=== PATIENT | female | born 1985 | race African-American/Black ===

== ENCOUNTER 2018-07-06 08:42 | Emergency (ER) | payer SELFPAY ==
[2018-07-06] MEDS ORDERED: AMOXICILLIN TRIHYDRATE 500 MG CAPSULE PO ONE (09:11)
[2018-07-06] MEDS ORDERED: IBUPROFEN 800 MG TABLET PO ONE (09:11)
--- NOTE | 2018-07-06 09:12 | ER Document Report ---
HPI - HPI Time Seen by Provider: 07/06/18 09:00 Onset: This morning Onset/Duration: Gradual Quality of pain: Achy Pain Level: 5 Context: Patient presents complaining of left ear pain that started today. Patient denies any fever or drainage from the ear. Associated Symptoms: Earache. denies: Fever, Rhinnorhea, Sore throat Exacerbated by: Denies Relieved by: Denies Similar symptoms previously: Yes Recently seen / treated by doctor: No - ROS ROS below otherwise negative: Yes Systems Reviewed and Negative: Yes All other systems reviewed and negative - CONSTITUTIONAL Constitutional: DENIES: Fever - EENT EENT: REPORTS: Ear Pain - GASTROINTESTINAL Gastrointestinal: DENIES: Nausea, Patient vomiting - REPRODUCTIVE Reproductive: DENIES: : - DERM Skin Color: Normal Skin Problems: None Past Medical History - General Information source: Patient - Social History Smoking Status: Current Every Day Smoker Smoking Education Provided: Yes Frequency of alcohol use: Occasional Drug Abuse: None Occupation: None Family History: Reviewed & Not Pertinent - Medical History Medical History: Negative Surgical Hx: Negative - Immunizations Hx Diphtheria, Pertussis, Tetanus Vaccination: Yes Vertical Provider Document - CONSTITUTIONAL Agree With Documented VS: Yes Exam Limitations: No Limitations General Appearance: WD/WN, No Apparent Distress - INFECTION CONTROL TRAVEL OUTSIDE OF THE [place] IN LAST 30 DAYS: No - HEENT HEENT: Atraumatic, Normocephalic, Tympanic Membrane Red, Tympanic Membrane Bulging - left. negative: Pharyngeal Exudate, Pharyngeal Tenderness, Pharyngeal Erythema Notes: No fluid or drainage from the left ear, no mastoid tenderness or swelling - NECK Neck: Normal Inspection, Supple. negative: Lymphadenopathy-Left, Lymphadenopathy-Right - RESPIRATORY Respiratory: Breath Sounds Normal, No Respiratory Distress - CARDIOVASCULAR Cardiovascular: Regular Rate, Regular Rhythm, No Murmur - BACK Back: Normal Inspection - MUSCULOSKELETAL/EXTREMETIES Musculoskeletal/Extremeties: MAEW - NEURO Level of Consciousness: Awake, Alert, Appropriate Motor/Sensory: No Motor Deficit - DERM Integumentary: Warm, Dry, No Rash Course - Re-evaluation Re-evalutation: 07/06/18 09:20 Patient complains of nausea and vomited one time. Additional medications order ed. 07/06/18 10:22 She reports that nausea is improved at this time and feels that she can manage her symptoms at home. - Vital Signs Vital signs: Temp Pulse Resp BP Pulse Ox 98.4 F 85 14 139/94 H 99 07/06/18 08:46 07/06/18 08:46 07/06/18 08:46 07/06/18 08:46 07/06/18 08:46 Discharge - Discharge Clinical Impression: Nausea Left otitis media Qualifiers: Otitis media type: unspecified Qualified Code(s): H66.92 - Otitis media, unspecified, left ear Condition: Stable Disposition: HOME, SELF-CARE Instructions: Amoxicillin ([facility]), Nausea or Vomiting, Nonspecific ([facility]), Otitis Media ([facility]) Additional Instructions: Return immediately for any new or worsening symptoms Followup with your primary care provider, call tomorrow to make a followup appointment Prescriptions: Amoxicillin 500 mg PO TID #30 tablet Naproxen [Naprosyn 250 Nmg Tablet] 1 tab PO BID #14 tablet Ondansetron HCl [Zofran 4 mg Tablet] 1 - 2 tab PO Q6 PRN #8 tablet PRN Reason: Referrals: [facility] [Provider Group] - Follow up as needed
[2018-07-06] MEDS ORDERED: ONDANSETRON 4 MG TAB.RAPDIS PO ONE (09:20)
[2018-07-06] MEDS ORDERED: HYDROCODONE/ACETAMINOPHEN 5-325 MG TABLET PO ONE (10:22)
[2018-07-06 10:39] VITALS: BP 146/94
== END 2018-07-06 10:41 | disposition home or self-care (01) ==
LOC: ER 08:42
DX: H66.92 Otitis media, unspecified, left ear (principal); H92.02 Otalgia, left ear; R11.2 Nausea with vomiting, unspecified; F17.200 Nicotine dependence, unspecified, uncomplicated
CPT/HCPCS: 99282; S0119

== ENCOUNTER 2018-11-05 07:53 | Emergency (ER) | payer SELFPAY ==
[2018-11-05 07:58] VITALS: BP 149/93
[2018-11-05] MEDS ORDERED: IBUPROFEN 600 MG TABLET PO ONE (09:36)
[2018-11-05] MEDS ORDERED: DIAZEPAM 5 MG TABLET PO ONE (09:36)
--- NOTE | 2018-11-05 09:39 | ER Document Report ---
HPI - HPI Time Seen by Provider: 11/05/18 09:06 Pain Level: 5 Notes: Patient is a 33-year-old otherwise healthy female presented to the emergency department with complaint of upper back pain and neck pain. Patient reports pain over the left scapular area. States this is been ongoing for approximately 5 days. Patient reports she thinks she pulled a muscle in her neck. Patient denies any recent illness or fever. - CONSTITUTIONAL Constitutional: DENIES: Fever, Chills - EENT EENT: DENIES: Sore Throat, Ear Pain, Eye problems - NEURO Neurology: REPORTS: Headache. DENIES: Weakness, Vision blurred, Dizzinesss / Vertigo - CARDIOVASCULAR Cardiovascular: DENIES: Chest pain - RESPIRATORY Respiratory: REPORTS: Coughing. DENIES: Trouble Breathing - GASTROINTESTINAL Gastrointestinal: DENIES: Abdominal Pain, Black / Bloody Stools - URINARY Urinary: DENIES: Dysuria, Urgency, Frequency - REPRODUCTIVE Reproductive: DENIES: : - MUSCULOSKELETAL Musculoskeletal: DENIES: Extremity pain Past Medical History - General Information source: Patient - Social History Smoking Status: Current Every Day Smoker Chew tobacco use (# tins/day): No Frequency of alcohol use: Social Drug Abuse: Marijuana Family History: Reviewed & Not Pertinent Patient has suicidal ideation: No Patient has homicidal ideation: No - Medical History Medical History: Negative Renal/ Medical History: Denies: Hx Peritoneal Dialysis Surgical Hx: Negative - Immunizations Hx Diphtheria, Pertussis, Tetanus Vaccination: Yes Vertical Provider Document - CONSTITUTIONAL Notes: PHYSICAL EXAMINATION: GENERAL: Well-appearing, well-nourished and in no acute distress. HEAD: Atraumatic, normocephalic. EYES: Pupils equal round extraocular movements intact, conjunctiva are normal. ENT: Nares patent NECK: Normal range of motion LUNGS: No respiratory distress Musculoskeletal: Limited range of motion to cervical area when turning head towards the right. No vertebral tenderness, step-off or deformity. NEUROLOGICAL: Normal speech, normal gait. PSYCH: Normal mood, normal affect. SKIN: Warm, Dry, normal turgor, no rashes or lesions noted. - INFECTION CONTROL TRAVEL OUTSIDE OF THE [place] IN LAST 30 DAYS: No Course - Re-evaluation Re-evalutation: 11/05/18 09:37 Examination is consistent with torticollis. Patient will be started on a short course of Valium and instructed to take [id number] ibuprofen. ED return precautions were discussed and patient verbalized understanding and agreement with plan. - Vital Signs Vital signs: Temp Pulse Resp BP Pulse Ox 98.1 F 71 18 149/93 H 100 11/05/18 07:57 11/05/18 07:57 11/05/18 07:57 11/05/18 07:57 11/05/18 07:57 Discharge - Discharge Clinical Impression: Torticollis Condition: Stable Disposition: HOME, SELF-CARE Additional Instructions: Torticollis You have torticollis, often called "wry neck." This is due to spasm of neck muscles -- locking the neck into a crooked position. Many different problems can lead to torticollis, such as a minor injury, sleeping with tension on the neck, or inflammation in the glands of the neck. Torticollis is usually treated with heat to relax the neck muscles, but the physician may recommend cold packs if a minor injury is suspected as the cause. Muscle relaxing and antiinflammatory medicine are often prescribed. You may need a neck collar to support your head. Improvement is usually rapid. Usually, the neck can be moved fully within two days, although some pain may persist for a few weeks. Call the doctor at once if you worsen, or if you develop high fever, severe headache, numbness or weakness, or other alarming symptoms. Please take muscle relaxer as prescribed. Absolutely no driving or consumption of alcohol while taking this medication. Please also take ibuprofen 600 mg every 6 hours to help with the pain and inflammation. Within the next 24 hours once you are having some symptom relief I would like you starting with gentle r an of motion exercises. Please follow-up with your primary care provider if not improving, return to the emergency department if you experience worsening symptoms or develop a fever. Prescriptions: Diazepam [Valium 5 mg Tablet] 5 mg PO TID #12 tablet
== END 2018-11-05 09:44 | disposition home or self-care (01) ==
LOC: ER 07:53
DX: M43.6 Torticollis (principal); M54.6 Pain in thoracic spine; M54.2 Cervicalgia; R51 Headache; F17.200 Nicotine dependence, unspecified, uncomplicated
CPT/HCPCS: 99283

== ENCOUNTER 2020-05-23 02:25 | Inpatient (IN) | payer MEDICAID ==
[2020-05-23 03:22] LABS: APPEARANCE,URINE CLEAR; BILIRUBIN,URINE NEGATIVE (NEGATIVE); COLOR,URINE YELLOW; GLUCOSE, URINE NEGATIVE (NEGATIVE); KETONES,URINE NEGATIVE (NEGATIVE); LEUKOCYTE ESTERASE,URINE NEGATIVE (NEGATIVE); NITRITE,URINE NEGATIVE (NEGATIVE); PROTEIN,URINE 30 mg/dL (NEGATIVE); URINE SPECIFIC GRAVITY 1.014; UROBILINOGEN,URINE NEGATIVE mg/dL (<2.0)
[2020-05-23 03:36] LABS: URINE AMPHETAMINES SCREEN NEGATIVE; URINE BARBITURATES SCREEN NEGATIVE; URINE BENZODIAZEPINES SCREEN NEGATIVE; URINE COCAINE SCREEN NEGATIVE; URINE METHADONE SCREEN NEGATIVE; URINE PHENCYCLIDINE SCREEN NEGATIVE
[2020-05-23 03:51] LABS: URINE MARIJUANA (THC) SCREEN UNCONFIRMED POSITIVE
[2020-05-23] MEDS ORDERED: PENICILLIN G POTASSIUM 5,000,000 UNIT in DEXTROSE 5%-WATER 100 ML IV ONE (03:51)
[2020-05-23] MEDS ORDERED: PENICILLIN G-K 5 MILLION UNIT VIAL ONE ×2 (04:13→09:10)
[2020-05-23] MEDS ORDERED: OXYTOCIN/0.9 % SODIUM CHLORIDE 30 UNIT/500 ML RTUINJ ONE ×3 (04:22→12:22)
[2020-05-23] MEDS ORDERED: OXYTOCIN 10 UNIT/ML VIAL ONE ×2 (04:22→12:22)
[2020-05-23] MEDS ORDERED: MISOPROSTOL 0.2 MG TABLET ONE (04:22)
[2020-05-23] MEDS ORDERED: LIDOCAINE 1% INJ-PF (10 MG/ML) 30 ML SDV ONE (04:22)
[2020-05-23 04:37] LABS: ABSOLUTE EOSINOPHILS # (AUTO) 0.1 10^3/uL (0.0-0.6); ABSOLUTE LYMPHOCYTES (AUTO) 2.7 10^3/uL (0.5-4.7); ABSOLUTE MONOCYTES (AUTO) 0.7 10^3/uL (0.1-1.4); ABSOLUTE NEUT (AUTO) 4.8 10^3/uL (1.7-8.2); BASOPHILS % (AUTO) 0.4 % (0-2); EOSINOPHILS % (AUTO) 0.8 % (0-6); HEMATOCRIT 34.8 % (36.0-47.0); HEMOGLOBIN 11.7 g/dL (12.0-15.5); LYMPHOCYTES % (AUTO) 32.5 % (13-45); MEAN CORPUSCULAR HEMOGLOBIN 31.7 pg (27.0-33.4); MEAN CORPUSCULAR HGB CONC 33.5 g/dL (32.0-36.0); MEAN CORPUSCULAR VOLUME 95 fl (80-97); MONOCYTES % (AUTO) 8.1 % (3-13); PLATELET COUNT 242 10^3/uL (150-450); RED BLOOD COUNT 3.68 10^6/uL (3.72-5.28); RED CELL DISTRIBUTION WIDTH 13.2 % (11.5-14.0); SEGMENTED NEUTROPHILS % (AUTO) 58.2 % (42-78); TOTAL CELLS COUNTED % (AUTO) 100 %; WHITE BLOOD COUNT 8.2 10^3/uL (4.0-10.5)
[2020-05-23] MEDS: RINGERS SOLUTION,LACTATED 1,000 ML IV PRN ×4 (05:15→22:13)
[2020-05-23 05:25] LABS: CHLAM PCR NOT DETECTED (NOT DETECT)
--- NOTE | 2020-05-23 06:18 | RADIOLOGY REPORT (SQ) ---
Ultrasound OB limited on 05/23/2020 at 4:28 AM CLINICAL INDICATION: Limited care, ruptured membranes COMPARISON: None FINDINGS: Limited sonographic images are obtained throughout the pelvis by transabdominal approach, both transverse and sagittal images were obtained. Single intrauterine fetus is noted in cephalic presentation. Positive cardiac activity is noted with a heart rate of 135 bpm. There is oligohydramnios with amniotic fluid index of 5.5 cm consistent with a history of ruptured membranes. Largest vertical pocket measures 2.2 cm. Placenta is posterior in location with no evidence of placenta previa or abruption. There is approximately 6.8 cm from placental edge to the internal cervical os. Estimated gestational age by measurements is an approximate 39 week zero day gestation. Estimated weight is 3481 g +/- 515 g which is at the 48th percentile. No gross abnormality is noted on limited imaging. IMPRESSION: Single living approximate 39 week intrauterine fetus in cephalic presentation with mild oligohydramnios.
--- NOTE | 2020-05-23 06:40 | Admission Physical ---
Datetime Report Generated by N: 05/23/2020 06:39 CURRENT ADMISSION Chief Complaint: Uterine Contractions; Suspected Ruptured Membranes Indication for Induction: PROM Admit Impression : Term, Intrauterine ; Ruptured Membranes; Induction of Labor Admit Plan: Admit to Unit; Initiate Labor Induction Protocol Admit Plan- Other: very limitied care. gbs unknown ALLERGIES Medication Allergies: No (Annotations: Data stored by [facility] on behalf of user) Medication Allergies: No Known Allergies (05/23/2020) Latex: No Latex Allergies (Annotations: Data stored by CPN on behalf of user) OBSTETRICAL HISTORY EDC: 05/20/2020 00:00 : 4 Para: 2 Term: 2 : 0 SAB: 1 IAB: 0 Ectopic: 0 Livin Cesareans: 0 VBACs: 0 Multiple Births: 0 Gestational Diabetes: No Rh Sensitization: No Incompetent Cervix: No KINGS: No Infertility: No ART Treatment: No Uterine Anomaly: No IUGR: No Hx Previous C/S: No Macrosomia: No Hx Loss/Stillborn: No PIH: No Hx : No Placenta Previa/Abruption: No Depression/PP Depression: No PTL/PROM: No Post Hemorrhage: No Current Procedures: Ultrasound; NST Obstetrical History Comments: G1 2004 G2- @ term, viable baby girl 03/30/06 G3- @ term, viable baby girl 04/15/08 G4- current MEDICAL HISTORY Diabetes: No Blood Transfusion: No Pulmonary Disease (Asthma, TB): No Breast Disease: No Hypertension: No Pantry Chef Surgery: No Heart Disease: No Hosp/Surgery: No Autoimmune Disorder: No Anesthetic Complications: No Kidney Disease: No Abnormal Pap Smear: Yes Neuro/Epilepsy: No Psychiatric Disorders: No Other Medical Diseases: No Hepatitis/Liver Disease: No Significant Family History: No Varicosities/Phlebitis: No Trauma/Violence : No Thyroid Dysfunction: No Medical History Comments: Hx abnormal pap smear, biopsy of vulvar lesion 03/2020 INFECTIOUS HISTORY Gonorrhea: No Genital Herpes: No Chlamydia: No Tuberculosis: No Syphilis: No Hepatitis: No HIV/AIDS Exposure: No Rash or Viral Illness: No HPV: No PHYSICAL EXAM General: Normal HEENT: Normal Neurologic: Normal Thyroid: Normal Heart: Normal Lungs: Normal Breast: Normal Back: Normal Abdomen: Normal Genitourinary Exam: Normal Extremities: Normal DTRs: Normal Pelvic Type: Adequate Vital Signs: Reviewed; Within Normal Limits VAGINAL EXAM Dilatation: 3 Effacement: 50 Station: -3 MEMBRANES Pooling: Positive Membranes: Ruptured Amniotic Fluid Color: Clear FETUS A EGA: 40.3 Monitoring: External US FHR- Baseline: 140 Variability: Moderate 6-25bpm Accelerations: 15X15 Decelerations: None FHR Category: Category I Estimated Weight (gm): 3500 Presentation: Vertex INFORMED CONSENT Signature: with User ID: DoAnderson
[2020-05-23] MEDS ORDERED: PENICILLIN G POTASSIUM 2,500,000 UNIT in DEXTROSE 5%-WATER 50 ML IV SCH (07:52)
[2020-05-23] MEDS ORDERED: OXYTOCIN/0.9 % SODIUM CHLORIDE 30 UNIT/500 ML RTUINJ IV PRN ×2 (08:52→13:23)
[2020-05-23] MEDS ORDERED: FENTANYL/BUPIVACAINE/NS/PF 300 MCG/150 ML RTUINJ EPI ONE (09:15)
[2020-05-23] MEDS ORDERED: EPHEDRINE SULFATE INJ 50 MG/1 ML AMPULE ONE ×2 (09:15→12:25)
[2020-05-23] MEDS ORDERED: ROPIVACAINE HCL 0.2% INJ/PF (2 MG/ML) 20 ML SDV ONE (09:15)
[2020-05-23] MEDS: PENICILLIN G POTASSIUM 2,500,000 UNIT in DEXTROSE 5%-WATER 50 ML IV SCH ×3 (09:19→17:09)
[2020-05-23] MEDS ORDERED: PHENYLEPHRINE HCL INJ/PF 10 MG/1 ML SDV ONE (12:15)
[2020-05-23] MEDS ORDERED: ACETAMINOPHEN 1,000 MG/100 ML RTUPB IV ONE (12:22)
[2020-05-23] MEDS ORDERED: GLYCOPYRROLATE INJ 0.4 MG/2 ML VIAL ONE (12:22)
[2020-05-23] MEDS ORDERED: KETOROLAC TROMETHAMINE INJ/PF 30 MG/1 ML SDV ONE (12:22)
[2020-05-23] MEDS ORDERED: MIDAZOLAM 2 MG/2 ML INJ ONE (12:22)
[2020-05-23] MEDS ORDERED: FENTANYL CITRATE INJ/PF 100 MCG/2 ML AMPUL ONE (12:22)
[2020-05-23] MEDS ORDERED: CEFAZOLIN 2 GM/D5W RTU 2 GM/50 ML RTUPB IV ONE (12:24)
[2020-05-23] MEDS ORDERED: CITRIC ACID/SODIUM CITRATE ORAL SOLN 15 ML UDCUP ONE (12:24)
[2020-05-23] MEDS ORDERED: LIDOCAINE 2% INJ-PF (20 MG/ML) 10 ML AMPUL ONE (12:29)
[2020-05-23] MEDS ORDERED: RINGERS SOLUTION,LACTATED 1,000 ML IV PRN (13:23)
[2020-05-23] MEDS ORDERED: ACETAMINOPHEN 1,000 MG/100 ML RTUPB IV PRN (13:23)
[2020-05-23] MEDS ORDERED: MORPHINE SULFATE 10 MG/ML INJ IV PRN (13:23)
[2020-05-23] MEDS ORDERED: PROMETHAZINE HCL INJ 25 MG/1 ML VIAL IV PRN (13:23)
[2020-05-23] MEDS ORDERED: MEASLES,MUMPS&RUBELLA VACC/PF 0.5 ML VIAL SUBCUT PRN (13:23)
[2020-05-23] MEDS ORDERED: ACETAMINOPHEN 325 MG TABLET PO PRN (13:23)
[2020-05-23] MEDS ORDERED: DIPH/PERTUSS(ACELL)/TETANUS VAC/PF 0.5 ML SYR (>=10YO) IM PRN (13:23)
[2020-05-23] MEDS ORDERED: SIMETHICONE 80 MG TAB.CHEW PO PRN (13:23)
[2020-05-23] MEDS ORDERED: OXYCODONE-ACETAMINOPHEN 5-325 MG TABLET PO PRN (13:23)
[2020-05-23] MEDS ORDERED: AMPICILLIN SOD/SULBACTAM 3 GM VIAL IV SCH (13:30)
--- NOTE | 2020-05-23 13:31 | Operative Report ---
Operative Report DATE OF SURGERY: 05/23/20 PREOPERATIVE DIAGNOSIS: IUP at 39 weeks and 2 days, prolonged second stage of l abor with nonreassuring heart tones, poor maternal effort POSTOPERATIVE DIAGNOSIS: Same OPERATION: Primary low transverse hysterotomy section SURGEON: CHAYA CARO ANESTHESIA: Epidural COMPLICATIONS: None ESTIMATED BLOOD LOSS: 850 cc INTRAOPERATIVE FINDINGS: Male infant cephalic presentation deep in the pelvis Apgars of 8 and 9 PROCEDURE: Indications: This is a who came in with intermittent care in active labor with rupture of membranes. She got to complete dilation was at a +2 station, however with had poor effort with pushing and repetitive and increasing with prolongation D cells. The D cells occasionally would recover but then we had repetitive decelerations during the pushing timeframe. The infant was at a +2 to +3 station and several attempts with a Kiwi vacuum were made however due to the amount of hair present and adequate suction was not able to be maintained through our efforts to deliver vaginally' did eventually get the fetus to approximately a +4 station with approximately one third of this head extruding from the vagina however the heart tones continue to get more concerning in the maternal effort but continued to decline therefore at that time it was decided that a would be performed and the head was then replaced higher into the pelvis and we went for the C- section. PROCEDURE IN DETAIL: The patient was taken to the operating room, prepared and draped in a normal sterile fashion in a supine position with a leftward tilt. A transverse skin incision was made with a scalpel and carried through to the underlying layer of fascia with the same scalpel. The fascia was excised in the midline and extended laterally with Lata. The fascia was then dissected from the rectus muscle sharply with Lata and the rectus muscle was divided and the peritoneal cavity was entered sharply with the same Metzenbaum. With good visualization of the bladder and the uterus the bladder blade was inserted. The hysterotomy was nicked with a scalpel and extended laterally with surgeon finger fraction. The infant was then delivered atraumatically. The nose and mouth were suctioned with a suction bulb, the cord was clamped and cut and handed off to awaiting pediatricians. Cord blood was collected. The placenta was removed manually. The uterus was exteriorized and cleared of clots and debris. The hysterotomy was closed with 0 Monocryl in a running, locked fashion. A second layer of the same suture was used to imbricate to ensure hemostasis. The uterus was returned to the abdomen and peritoneal cavity was cleared of clots and debris. The rectus muscle and peritoneum were repaired with mattress stitch of 2-0 Chromic. The fascia was closed with 0-Vicryl. The subcutaneous layer was closed with plain catgut and the skin was closed with 4-0 Vicryl. The patient tolerated the procedure well. Sponge, lap, and needle counts correct x2 and the patient was taken to recovery in stable condition.
[2020-05-23] MEDS ORDERED: MORPHINE SULFATE 10 MG/ML INJ ONE (14:47)
[2020-05-23] MEDS ORDERED: AMPICILLIN SOD/SULBACTAM 3 GM VIAL ONE (15:00)
[2020-05-23] MEDS: KETOROLAC TROMETHAMINE INJ/PF 30 MG/1 ML SDV IV SCH ×2 (15:47→22:12)
[2020-05-23] MEDS: AMPICILLIN SOD/SULBACTAM 3 GM VIAL IV SCH ×2 (17:04→22:12)
[2020-05-23] MEDS: IBUPROFEN 800 MG TABLET PO SCH (17:46)
[2020-05-23] MEDS: DOCUSATE SODIUM 100 MG CAPSULE PO SCH (17:47)
[2020-05-23] MEDS: OXYCODONE-ACETAMINOPHEN 5-325 MG TABLET PO PRN (18:23)
--- NOTE | 2020-05-23 18:45 | Birth Certificate Data ---
Cert Data Datetime Report Generated by CPN: 05/23/2020 18:44 CERTIFICATE DATA Delivery Provider: Summer Valiente MD (05/23/2020 14:29:Redd Conrad RN) 48a. Number of Prev Live Births: 2 (05/23/2020 02:41:Jewels Nuno RN) 48b. Now Livin (05/23/2020 02:41:Jewels Nuno RN) 48c. Live Births Now : 0 (05/23/2020 02:41:QS system process) 48e. Losses: 0 (05/23/2020 02:41:Jewels Nuno RN) RISK FACTORS IN THIS 49a. Diabetes: No (05/23/2020 02:41:Denise Sinclair RN) 49b. Hypertension: No (05/23/2020 02:41:Denise Sinclair RN) 49c. Previous Births: 0 (05/23/2020 02:41:Jewels Nuno RN) 49d. Stillborns: No (05/23/2020 02:41:Denise Sinclair RN) 49d. IUGR: No (05/23/2020 02:41:Denise Sinclair RN) 49e. Infertility Treatment: No (05/23/2020 02:41:Denise Sinclair RN) 49f. Previous Cesareans: 0 (05/23/2020 02:41:Jewels Nuno RN) Mother's Height 50b. Height Inches: 67 (05/23/2020 15:58:QS system process) Mother's Weight 51b. Weight at Delivery (lbs): 187 (05/23/2020 15:58:QS system process) Infections Present/Treated 53a. Gonorrhea: No (05/23/2020 02:41:Denise Sinclair RN) 53b. Syphilis: No (05/23/2020 02:41:Denise Sinclair RN) 53c. Chlamydia: No (05/23/2020 02:41:Denise Sinclair RN) 53d. Hepatitis B: No (05/23/2020 02:41:Denise Sincalir RN) Results this Hospital Visit: Negative (05/23/2020 02:41:Jewels Nuno RN) 53e. Hepatitis C: Negative (05/23/2020 02:41:Jewels Nuno RN) 53h. Mother Tested for HBsAG: Yes (05/23/2020 02:41:Denise Sinclair RN) 53j. Test Result: Negative (05/23/2020 02:41:Jewels Nuno RN) Obstetric Procedures 54a, b, c. Obstetric Procedures: Ultrasound; NST (05/23/2020 02:41:Denise Sinclair RN) Onset of Labor 56a. PROM >12 Hrs: 10.62 (05/23/2020 06:02:QS system process) 56b. Precipitous Labor <3 Hrs: 2 (05/23/2020 02:41:QS system process) 56c. Prolonged Labor > 20 Hrs: 2 (05/23/2020 02:41:QS system process) 57a. Induction of Labor: Augmentation (05/23/2020 02:41:Ingrid Negrete RN) 57d. Steroids - Lung Mat: None (05/23/2020 02:41:Redd Conrad RN) 57d. Steroids - Lung Mat: Not Applicable (05/23/2020 02:41:Redd Conrad RN) 57e. Antibiotics During Labor: 05/23/2020 09:19 (05/23/2020 02:41:Redd Conrad RN) 57g. Moderate/Heavy Meconium: Clear (05/23/2020 06:02:Denise Sinclair RN) 57h. Intolerance of Labor: Nonreassuring Status (05/23/2020 02:41:Redd Conrad RN) : N/A (05/23/2020 02:41:Redd Conrad RN) 57i. Epidural/Spinal Anesthesia: Epidural (05/23/2020 02:41:Ingrid Negrete RN) Method of Delivery 58a. Forceps - Unsuccessful A: N/A (05/23/2020 02:41:Redd Conrad RN) 58b. Vacuum - Unsuccessful A: Failed (05/23/2020 02:41:Redd Conrad RN) 58c. Presentation at 58c. Presentation at - A : N/A (05/23/2020 02:41:Redd Conard RN) 58c. Presentation at - A : Cephalic (05/23/2020 06:02:Denise Sinclair RN) Final Route and Method of Del 58d. Baby A Route/Delivery: (05/23/2020 02:41:Ingrid Negrete RN) 58e. Trial of Labor Attempted: No (05/23/2020 02:41:Ingrid Negrete RN) 58e. Trial of Labor Attempted A: N/A (05/23/2020 02:41:Ingrid Negrete RN) 58e. Trial of Labor Attempted B: N/A (05/23/2020 02:41:Ingrid Negrete RN) Maternal Morbidity 59b. 3rd or 4th Degree Lacs: None (05/23/2020 02:41:eRdd Conrad RN) Birthweight Baby A: 3220 (05/23/2020 02:41:Selene Magana RN) 60a. Pounds : 7 (05/23/2020 02:41:QS system process) 60b. Ounces: 2 (05/23/2020 02:41:QS system process) 61. GA at Delivery Baby A: 40.3 (05/23/2020 02:41:Ingrid Negrete RN) : Full Term- 39- 40.6 Weeks (05/23/2020 02:41:QS system process) 62a. 5 Minute Baby A: 9 (05/23/2020 02:41:QS system process)
--- NOTE | 2020-05-23 18:45 | Delivery Summary ---
Del Sum A-C Datetime Report Generated by CPN: 05/23/2020 18:44 DELIVERY PERSONNEL DELIVERY PERSONNEL: [id number] Delivery Doctor:: Summer Valiente MD IT SECURITY CONSULTANT:: Rios Normile,IT SECURITY CONSULTANT Labor and Delivery Nurse:: Redd Conrad RN Sample Selector:: Redd Conrad RN Nursery Nurse:: Selene Magana RN Polytechnic Teacher/CONSTRUCTION PROJECT ENGINEER: Miranda Bazzi CST Polytechnic Teacher/CONSTRUCTION PROJECT ENGINEER: [facility], AIR REDUCTION EQUIPMENT OPERATOR MATERNAL INFORMATION Delivery Anesthesia: Epidural Medications After Delivery: Pitocin 30 Units in 500ml NS/D5W Delivery QBL: 601 LABOR SUMMARY EDC: 05/20/2020 00:00 No. Babies in Womb: 1 Attempted: No Labor Anesthesia: Epidural LABOR INFORMATION Reason for Induction: Not Applicable Onset of Labor: 05/23/2020 10:00 Complete Dilatation: 05/23/2020 11:15 Oxytocin: Augmentation Group B Beta Strep: unknown (Annotations: Data stored by [facility] on behalf of user) Antibiotics # of Doses: 2 Antibiotics Time of Last Dose: 05/23/2020 09:19 Name of Antibiotic Given: penicillin Steroids Given: None Reason Steroids Not Administered: Not Applicable MEMBRANES Membranes Rupture Method: Spontaneous Rupture of Membranes: 05/23/2020 02:00 Length of Rupture (hr): 10.62 Amniotic Fluid Color: Clear Amniotic Fluid Amount: Small Amniotic Fluid Odor: None STAGES OF LABOR Stage 1 hr: 1 Stage 1 min: 15 Stage 2 hr: 1 Stage 2 min: 22 Stage 3 hr: 0 Stage 3 min: 2 Total Time in Labor hr: 2 Total Time in Labor min: 39 VAGINAL DELIVERY Episiotomy: None Laceration #1: None Laceration Extension #1: N/A Laceration Repair: Not Applicable Sponge Count Correct: N/A Sharps Count Correct: N/A CSECTION DELIVERY Primary Indication: Nonreassuring Status Secondary Indication: N/A CSection Urgency: Emergency CSection Incidence: Primary Labor: Labor Elective: N/A CSection Incision: Lower Uterine Transverse BABY A INFORMATION Delivery Date/Time: 05/23/2020 12:37 Method of Delivery: Nurse Controlled Delivery: No Born in Route : No : N/A Forceps: N/A Vacuum Extraction: Failed Shoulder Dystocia : No ASSISTED DELIVERY BABY A Indication for Assisted Delivery: Nonreassuring status Catheter Prior to Procedure: No Vacuum Number of Pulls: 5 Vacuum Number of PopOffs: 5 Reduce Pressure btwn Ctx: Yes Vacuum Education Coordinator: [employer], [employer] Total Time Vacuum Applied: 5 PRESENTATION/POSITION BABY A Presentation: Cephalic Breech Presentation: N/A PLACENTA INFORMATION BABY A Placenta Delivery Time : 05/23/2020 12:39 Placenta Method of Delivery: Manual Removal Placenta Status: Delivered SCORES BABY A Heart Rate 1 min: >100 bpm Resp Effort 1 min: Good Cry Reflex Irritability 1 min: Cough or Sneeze or Pulls Away Muscle Tone 1 min: Active Motion Color 1 min: Blue/Pale SCORE 1 MIN: 8 Heart Rate 5 min: >100 bpm Resp Effort 5 min: Good Cry Reflex Irritability 5 min: Cough or Sneeze or Pulls Away Muscle Tone 5 min: Active Motion Color 5 min: Body Casas, Extremities Blue SCORE 5 MIN: 9 INFANT INFORMATION BABY A Gestational Age at Delivery: 40.3 Gestational Status: Full Term- 39- 40.6 Weeks Outcome : Liveborn Infant Condition : Stable Infant Sex: Male IDENTIFICATION BABY A Infant Verification Date/Time: 05/23/2020 13:12 ID Band Number: [id number] Mother's Name Verified: Yes RN Verifying : TMartin,RNC Additional Verifying Personnel: MJorge,RNC WEIGHT/LENGTH BABY A Infant Birthweight (gm): 3220 Infant Weight (lb): 7 Weight (oz): 2 Infant Length (in): 20.00 Infant Length (cm): 50.80 CORD INFORMATION BABY A No. Cord Vessels: 3 Nuchal Cord : N/A Cord Blood Taken: Yes-For Eval (Mom's Blood Type - or O+) Suction: None ASSESSMENT BABY A Skin to Skin: Yes Skin to Skin Time (min): 2 Care By: AShafer,RN BABY B INFORMATION : N/A
[2020-05-24] MEDS: IBUPROFEN 800 MG TABLET PO SCH ×5 (01:48→23:02)
[2020-05-24] MEDS: AMPICILLIN SOD/SULBACTAM 3 GM VIAL IV SCH (05:25)
[2020-05-24] MEDS: KETOROLAC TROMETHAMINE INJ/PF 30 MG/1 ML SDV IV SCH (05:25)
[2020-05-24] MEDS: OXYCODONE-ACETAMINOPHEN 5-325 MG TABLET PO PRN ×2 (05:59→12:07)
[2020-05-24 06:51] LABS: HEMATOCRIT 33.2 % (36.0-47.0); HEMOGLOBIN 11.1 g/dL (12.0-15.5); MEAN CORPUSCULAR HEMOGLOBIN 31.7 pg (27.0-33.4); MEAN CORPUSCULAR HGB CONC 33.3 g/dL (32.0-36.0); MEAN CORPUSCULAR VOLUME 95 fl (80-97); PLATELET COUNT 238 10^3/uL (150-450); RED BLOOD COUNT 3.49 10^6/uL (3.72-5.28); RED CELL DISTRIBUTION WIDTH 13.3 % (11.5-14.0); WHITE BLOOD COUNT 11.2 10^3/uL (4.0-10.5)
[2020-05-24] MEDS ORDERED: MEASLES,MUMPS&RUBELLA VACC/PF 0.5 ML VIAL SUBCUT PRN (08:00)
[2020-05-24] MEDS ORDERED: DIPH/PERTUSS(ACELL)/TETANUS VAC/PF 0.5 ML SYR (>=10YO) IM PRN (08:00)
--- NOTE | 2020-05-24 09:49 | PDOC PROGRESS REPORT ---
Subjective-OB Progress Note for:: 05/24/20 - POD #1, s/p primary , pt doing well, sitting on side of bed, voiding, O+, Rubella non-immune, Physical Exam (OB) Vital Signs: Temp Pulse Resp BP Pulse Ox 97.8 F 67 16 115/68 100 05/24/20 08:12 05/24/20 08:12 05/24/20 08:12 05/24/20 08:12 05/24/20 08:12 Intake & Output 05/23/20 05/24/20 05/25/20 06:59 06:59 06:59 Intake Total 3262 Output Total 2400 Balance 862 Weight 84.9 kg - General General Appearance: Appears well, Alert In distress: None - PIH/Pre-Eclampsia Clonus: Negative Headache: Absent Epigastric Pain: No Visual Changes: No - Dressing Removed: No - op site, scant drainage Incision: Dressing Closure Type: OPSITE - Maternal Morbidity 59. Maternal Morbidity (serious complications experinced by the mother associated with labor and delivery: None of the above - Lochia Lochia Amount: Small 10-25 ml Lochia Color: Rubra/Red - Abdomen Description: Soft, Round Hernia Present: No Fundal Description: Firm, Midline Fundal Height: u/u - u/2 - Respiratory Respiratory Status: No respiratory distress Breath sounds: Clear - Cardiovascular Rhythm: Regular Heart Sounds: Normal auscultation - Abdominal Distension: No distension Tenderness: Nontender Abdominal Notes: +bowel sounds - Genitourinary Genitourinary Note: voiding - Extremities Upper extremity: Normal inspection Lower extremities: Normal inspection - Neurological Cognition: Normal Orientation: AAOx4 - Psychological Associated symptoms: Normal affect, Normal mood - Skin Skin Temperature: Warm Skin Moisture: Dry Objective-Diagnostic Laboratory: 05/24/20 06:29 05/24/20 06:29 WBC 11.2 H RBC 3.49 L Hgb 11.1 L Hct 33.2 L MCV 95 MCH 31.7 MCHC 33.3 RDW 13.3 Plt Count 238 Assessment and Plan(PN) - Assessment and Plan (1) S/P primary low transverse Is this a current diagnosis for this admission?: Yes (2) intolerance to labor, delivered, current hospitalization Is this a current diagnosis for this admission?: Yes (3) Rubella nonimmune status, delivered, current hospitalization Is this a current diagnosis for this admission?: Yes (4) Limited care Qualifiers: Trimester: third trimester Qualified Code(s): O09.33 - Supervision of with insufficient care, third trimester Is this a current diagnosis for this admission?: Yes (5) Tetrahydrocannabinol (THC) use disorder, mild, abuse Is this a current diagnosis for this admission?: Yes - Time Spent with Patient Time with patient: Less than 15 minutes Medications reviewed and adjusted accordingly: Yes - Disposition Anticipated Discharge Disposition: Home, Self Care Anticipated Discharge Timeframe: within 48 hours
[2020-05-24] MEDS: DOCUSATE SODIUM 100 MG CAPSULE PO SCH ×2 (10:14→17:22)
[2020-05-24] MEDS: PRENATAL VITAMIN W DHA CAPSULE PO SCH (10:14)
[2020-05-25] MEDS: IBUPROFEN 800 MG TABLET PO SCH ×2 (05:23→12:00)
[2020-05-25] MEDS: PRENATAL VITAMIN W DHA CAPSULE PO SCH (10:05)
[2020-05-25] MEDS: DOCUSATE SODIUM 100 MG CAPSULE PO SCH (10:05)
--- NOTE | 2020-05-25 10:31 | PDOC DISCHARGE SUMMARY ---
Impression - Admit/DC Date/PCP Admission Date/Primary Care Provider: 05/23/20 03:56 Discharge Date: 05/25/20 - Discharge Diagnosis (1) intolerance to labor, delivered, current hospitalization Is this a current diagnosis for this admission?: Yes (2) Limited care Is this a current diagnosis for this admission?: Yes (3) S/P primary low transverse Is this a current diagnosis for this admission?: Yes (4) Tetrahydrocannabinol (THC) use disorder, mild, abuse Is this a current diagnosis for this admission?: Yes - Additional Information Discharge Diet: Regular Discharge Activity: Balance Activity w/Rest, No Lifting Over 10 Pounds, No Lifting/Push/Pulling, Pelvic Rest, No tub bath Prescriptions: Ibuprofen [Motrin 800 mg Tablet] 800 mg PO Q8HP PRN #90 tablet PRN Reason: Oxycodone HCl/Acetaminophen [Percocet 5-325 mg Tablet] 1 tab PO Q4HP PRN #20 tablet PRN Reason: Vit/Dha [ Multi + Dha Capsule] 1 cap PO DAILY #90 capsule Home Medications: Ibuprofen [Motrin 800 mg Tablet] 800 mg PO Q8HP PRN #90 tablet 05/25/20 Oxycodone HCl/Acetaminophen [Percocet 5-325 mg Tablet] 1 tab PO Q4HP PRN #20 tablet 05/25/20 Vit/Dha [ Multi + Dha Capsule] 1 cap PO DAILY #90 capsule 05/25/20 Hospital Course 59. Maternal Morbidity (serious complications experinced by the mother associa nedra with labor and delivery: None of the above Results Laboratory Results: WBC 11.2 10^3/uL (4.0-10.5) H 05/24/20 06:29 RBC 3.49 10^6/uL (3.72-5.28) L 05/24/20 06:29 Hgb 11.1 g/dL (12.0-15.5) L 05/24/20 06:29 Hct 33.2 % (36.0-47.0) L 05/24/20 06:29 MCV 95 fl (80-97) 05/24/20 06:29 MCH 31.7 pg (27.0-33.4) 05/24/20 06:29 MCHC 33.3 g/dL (32.0-36.0) 05/24/20 06:29 RDW 13.3 % (11.5-14.0) 05/24/20 06:29 Plt Count 238 10^3/uL (150-450) 05/24/20 06:29 Lymph % (Auto) 32.5 % (13-45) 05/23/20 04:16 Morton % (Auto) 8.1 % (3-13) 05/23/20 04:16 Eos % (Auto) 0.8 % (0-6) 05/23/20 04:16 Baso % (Auto) 0.4 % (0-2) 05/23/20 04:16 Absolute Neuts (auto) 4.8 10^3/uL (1.7-8.2) 05/23/20 04:16 Absolute Lymphs (auto) 2.7 10^3/uL (0.5-4.7) 05/23/20 04:16 Absolute Monos (auto) 0.7 10^3/uL (0.1-1.4) 05/23/20 04:16 Absolute Eos (auto) 0.1 10^3/uL (0.0-0.6) 05/23/20 04:16 Absolute Basos (auto) 0.0 10^3/uL (0.0-0.2) 05/23/20 04:16 Seg Neutrophils % 58.2 % (42-78) 05/23/20 04:16 Urine Color YELLOW 05/23/20 02:40 Urine Appearance CLEAR 05/23/20 02:40 Urine pH 6.0 (5.0-9.0) 05/23/20 02:40 Ur Specific Aragon 1.014 05/23/20 02:40 Urine Protein 30 mg/dL (NEGATIVE) H 05/23/20 02:40 Urine Glucose (UA) NEGATIVE mg/dL (NEGATIVE) 05/23/20 02:40 Urine Ketones NEGATIVE mg/dL (NEGATIVE) 05/23/20 02:40 Urine Blood NEGATIVE (NEGATIVE) 05/23/20 02:40 Urine Nitrite NEGATIVE (NEGATIVE) 05/23/20 02:40 Urine Bilirubin NEGATIVE (NEGATIVE) 05/23/20 02:40 Urine Urobilinogen NEGATIVE mg/dL (<2.0) 05/23/20 02:40 Ur Leukocyte Esterase NEGATIVE (NEGATIVE) 05/23/20 02:40 Urine Ascorbic Acid 20 (NEGATIVE) H 05/23/20 02:40 Membranes Rupture POSITIVE (NEGATIVE) H 05/23/20 03:33 Urine Opiates Screen NEGATIVE 05/23/20 02:40 Urine Methadone Screen NEGATIVE 05/23/20 02:40 Ur Barbiturates Screen NEGATIVE 05/23/20 02:40 Ur Phencyclidine Scrn NEGATIVE 05/23/20 02:40 Ur Amphetamines Screen NEGATIVE 05/23/20 02:40 U Benzodiazepines Scrn NEGATIVE 05/23/20 02:40 Urine Cocaine Screen NEGATIVE 05/23/20 02:40 U Marijuana (THC) Screen UNCONFIRMED POSITIVE 05/23/20 02:40 RPR NONREACTIVE (NONREACTIVE) 05/23/20 04:16 Chlamydia DNA (PCR) NOT DETECTED (NOT DETECT) 05/23/20 02:40 N.gonorrhoeae DNA (PCR) NOT DETECTED (NOT DETECT) 05/23/20 02:40 Blood Type O POSITIVE 05/23/20 04:16 Antibody Screen NEGATIVE 05/23/20 04:16 Impressions: Obstetrics Ultrasound 05/23/20 04:05 IMPRESSION: Single living approximate 39 week intrauterine fetus in cephalic presentation with mild oligohydramnios. Plan Plan of Treatment: follow up in one week for incision check
[2020-05-25 15:16] VITALS: BP 120/72
== END 2020-05-25 17:35 | disposition home or self-care (01) | DRG 787 ==
LOC: LC 02:25 → LR 03:56 → 2S 15:50
PROVIDERS: ADMIT Obstetrics & Gynecology; ATTEND Obstetrics & Gynecology
PROC: 10D00Z1 Extraction of Products of Conception, Low, Open Approach (ICD-10-PCS; principal; 2020-05-23)
DX: O41.03X0 Oligohydramnios, third trimester, not applicable or unspecified (principal); O99.324 Drug use complicating childbirth; Z20.828 Contact with and (suspected) exposure to other viral communicable diseases; O36.8330 Maternal care for abnormalities of the fetal heart rate or rhythm, third trimester, not applicable or unspecified; F12.19 Cannabis abuse with unspecified cannabis-induced disorder; O32.8XX0 Maternal care for other malpresentation of fetus, not applicable or unspecified; O76 Abnormality in fetal heart rate and rhythm complicating labor and delivery; O62.4 Hypertonic, incoordinate, and prolonged uterine contractions; Z3A.40 40 weeks gestation of pregnancy; Z37.0 Single live birth
CPT/HCPCS: 1967; 1968; 36415; 76815; 80307; 80349; 81005; 84112; 85025; 85027; 86592; 86850; 86900; 86901; 87077; 87081; 87491; 87591; 94760; 99140; G0480; J0131; J0295; J0690; J1885; J2250; J2270; J2370; J2540; J2590; J2795; J3010; J3490; J7060; J7120